=== PATIENT | male | born 1930 | race Caucasian/White ===

== ENCOUNTER 2016-03-02 16:40 | Inpatient (IN) | payer MEDICARE ==
[~2016-03-02] VITALS: Ht 167.6 cm; Wt 57.7 kg
[2016-03-02] MEDS ORDERED: ENOXAPARIN SOD 100 MG/1 ML SYRINGE SC ONE (17:30)
[2016-03-02 17:54] LABS: Basophils # (auto) 0 uL; Basophils % (auto) 0.4 % (0.0-2.0); Eosinophils # (auto) 0.4 uL; Eosinophils % (auto) 4.4 % (0.0-7.0); Hematocrit 42.8 % (41.0-53.0); Hemoglobin 14.1 g/dL (13.5-17.5); Lymphocytes # (auto) 1.3 uL; Lymphocytes % (auto) 15.4 % (10.0-50.0); Mean Corpuscular Hemoglobin 31.1 pg (28.0-32.0); Mean Corpuscular Hgb Conc. 32.9 g/dL (32.0-36.0); Mean Corpuscular Volume 94.4 fL (80.0-100.0); Mean Platelet Volume 7.5 fL (7.4-10.4); Monocytes # (auto) 0.6 uL; Monocytes % (auto) 6.9 % (0.0-12.0); Neutrophils # (auto) 6.2 uL; Neutrophils % (auto) 72.9 % (37.0-80.0); Platelet Count (auto) 242 10^3/uL (140-450); Red Cell Distribution Width 13.7 % (11.6-16.0); White Blood Cell 8.4 10^3/uL (4.4-10.8)
[2016-03-02 18:11] LABS: Albumin 3.4 g/dL (3.4-5.0); BUN/Creatinine Ratio 18.8; Calcium 8.3 mg/dL (8.5-10.1); Potassium 4.3 mmol/L (3.5-5.1)
[2016-03-02 18:13] LABS: Bilirubin, Total 0.3 mg/dL (0.2-1.0); Total Protein 7.4 g/dL (6.4-8.2)
[2016-03-02] MEDS ORDERED: cloNIDine HCL 0.1 MG TAB PO ONE (18:15)
[2016-03-02] MEDS ORDERED: POTASSIUM CHL 10 Meq TABLET PO ONE (19:15)
[2016-03-02] MEDS ORDERED: FUROSEMIDE 20 MG/2 ML VIAL IV ONE (19:15)
[2016-03-02] MEDS ORDERED: TEMAZEPAM 15 MG CAP PO PRN (19:30)
[2016-03-02] MEDS ORDERED: DOCUSATE SOD 100 MG CAP PO PRN (19:30)
[2016-03-02] MEDS ORDERED: MORPHINE SULF INJ 2 MG/ML SYRINGE 1ML IV PRN (19:30)
[2016-03-02] MEDS ORDERED: ACETAMINOPHEN 325 MG TAB PO PRN (19:30)
[2016-03-02] MEDS ORDERED: ENALAPRIL MALEATE 2.5 MG TAB PO ONE (19:30)
[2016-03-02] MEDS ORDERED: ONDANSETRON HCL 4 MG/2 ML VIAL IV PRN (19:30)
[2016-03-02] MEDS ORDERED: cloNIDine HCL 0.1 MG TAB PO PRN (19:30)
[2016-03-02] MEDS ORDERED: HYDROcodone-ACET 5/325MG TAB PO PRN (19:30)
[2016-03-02] MEDS: MULTIPLE VITAMIN TAB PO SCH (19:38)
[2016-03-02 19:41] LABS: INR 1.08 (0.9-1.15); Prothrombin Time 11.1 sec (9.37-12.3)
[2016-03-02 20:00] VITALS: BP 155/69
[2016-03-02 20:20] LABS: Urine Bilirubin Negative (Negative); Urine Blood Negative /uL (Negative); Urine Color Yellow (Yellow); Urine Glucose Normal (Normal); Urine Ketone Negative (Negative); Urine Nitrite Negative (Negative); Urine RBC 2 /hpf (0 - 3); Urine Squamous Epithelial Cell FEW /hpf (<5); Urine Urobilinogen Normal (Negative)
[2016-03-02] MEDS: FAMOTIDINE 20 MG TAB PO SCH (22:00)
[2016-03-02] MEDS: SODIUM CHLOR 0.9% PF (SALINE LOCK) 10ML VIAL IV SCH (22:17)
[2016-03-02] MEDS: CARVEDILOL 3.125 MG TAB PO SCH (22:18)
[2016-03-02 22:38] VITALS: BP 155/69
[2016-03-03 04:06] VITALS: BP 139/76
[2016-03-03] MEDS: ENOXAPARIN SOD 60 MG/0.6 ML SYRINGE SC SCH ×2 (05:40→18:06)
[2016-03-03] MEDS: SODIUM CHLOR 0.9% PF (SALINE LOCK) 10ML VIAL IV SCH ×3 (05:40→21:30)
[2016-03-03 05:53] LABS: Basophils # (auto) 0 uL; Basophils % (auto) 0.6 % (0.0-2.0); Eosinophils # (auto) 0.7 uL; Hematocrit 40.2 % (41.0-53.0); Hemoglobin 13.3 g/dL (13.5-17.5); Lymphocytes # (auto) 1.3 uL; Lymphocytes % (auto) 17.3 % (10.0-50.0); Mean Corpuscular Hemoglobin 31.1 pg (28.0-32.0); Mean Corpuscular Volume 94.3 fL (80.0-100.0); Mean Platelet Volume 8.1 fL (7.4-10.4); Monocytes # (auto) 0.5 uL; Monocytes % (auto) 6.4 % (0.0-12.0); Neutrophils % (auto) 66.7 % (37.0-80.0); Platelet Count (auto) 221 10^3/uL (140-450); Red Cell Distribution Width 13.7 % (11.6-16.0); White Blood Cell 7.4 10^3/uL (4.4-10.8)
[2016-03-03 06:21] LABS: Albumin 3.1 g/dL (3.4-5.0); BUN/Creatinine Ratio 19.1; Calcium 8.5 mg/dL (8.5-10.1); Potassium 4.1 mmol/L (3.5-5.1)
[2016-03-03 06:24] LABS: Bilirubin, Total 0.5 mg/dL (0.2-1.0); Total Protein 6.6 g/dL (6.4-8.2)
[2016-03-03 09:08] VITALS: BP 133/60
[2016-03-03] MEDS: FUROSEMIDE 20 MG/2 ML VIAL IV SCH (10:02)
[2016-03-03] MEDS: POTASSIUM CHL 10 Meq TABLET PO SCH (10:03)
[2016-03-03] MEDS: FAMOTIDINE 20 MG TAB PO SCH (10:03)
[2016-03-03] MEDS: MULTIPLE VITAMIN TAB PO SCH (10:03)
[2016-03-03] MEDS: CARVEDILOL 3.125 MG TAB PO SCH ×2 (10:04→11:05)
[2016-03-03 13:00] VITALS: BP 164/71
[2016-03-03] MEDS ORDERED: LORazepam 2MG/ML-1ML VIAL IV PRN (16:15)
[2016-03-03 17:00] VITALS: BP 159/76
[2016-03-03 22:00] VITALS: BP 128/32
[2016-03-04 05:00] VITALS: BP 176/75
[2016-03-04] MEDS: SODIUM CHLOR 0.9% PF (SALINE LOCK) 10ML VIAL IV SCH ×2 (05:26→14:00)
[2016-03-04] MEDS: ENOXAPARIN SOD 60 MG/0.6 ML SYRINGE SC SCH (05:27)
[2016-03-04 06:14] LABS: Basophils # (auto) 0 uL; Basophils % (auto) 0.4 % (0.0-2.0); DEFINITIVE VIEW TRANSMISSION; Eosinophils % (auto) 11.5 % (0.0-7.0); Hematocrit 45.4 % (41.0-53.0); Hemoglobin 14.7 g/dL (13.5-17.5); Lymphocytes # (auto) 1.9 uL; Lymphocytes % (auto) 23.2 % (10.0-50.0); Mean Corpuscular Hemoglobin 31.1 pg (28.0-32.0); Mean Corpuscular Hgb Conc. 32.5 g/dL (32.0-36.0); Mean Corpuscular Volume 95.8 fL (80.0-100.0); Mean Platelet Volume 8.4 fL (7.4-10.4); Monocytes # (auto) 0.7 uL; Monocytes % (auto) 8.8 % (0.0-12.0); Neutrophils # (auto) 4.7 uL; Neutrophils % (auto) 56.1 % (37.0-80.0); Platelet Count (auto) 233 10^3/uL (140-450); Red Cell Distribution Width 12.9 % (11.6-16.0); White Blood Cell 8.3 10^3/uL (4.4-10.8)
[2016-03-04 07:17] LABS: Albumin 3.6 g/dL (3.4-5.0); BUN/Creatinine Ratio 24.3; Bilirubin, Total 0.4 mg/dL (0.2-1.0); Calcium 8.8 mg/dL (8.5-10.1); Potassium 3.8 mmol/L (3.5-5.1); Total Protein 7.6 g/dL (6.4-8.2)
[2016-03-04] MEDS: FUROSEMIDE 20 MG/2 ML VIAL IV SCH (11:08)
[2016-03-04] MEDS: MULTIPLE VITAMIN TAB PO SCH (11:08)
[2016-03-04] MEDS: POTASSIUM CHL 10 Meq TABLET PO SCH (11:09)
[2016-03-04] MEDS: FAMOTIDINE 20 MG TAB PO SCH (11:09)
[2016-03-04] MEDS: CARVEDILOL 3.125 MG TAB PO SCH (11:09)
[2016-03-04 12:56] VITALS: BP 135/66
[2016-03-05] MEDS ORDERED: ENOXAPARIN SOD 60 MG/0.6 ML SYRINGE SC SCH (10:00)
== END 2016-03-04 14:00 | disposition home or self-care (01) | DRG 299 ==
LOC: ER 16:46 → OVERFLOW 16:47 → WEST WING 19:52
PROVIDERS: ADMIT Internal Medicine; ATTEND Family Medicine
DX: I82.403 Acute embolism and thrombosis of unspecified deep veins of lower extremity, bilateral (principal); I50.43 Acute on chronic combined systolic (congestive) and diastolic (congestive) heart failure; G93.49 Other encephalopathy; E44.0 Moderate protein-calorie malnutrition; I13.0 Hypertensive heart and chronic kidney disease with heart failure and stage 1 through stage 4 chronic kidney disease, or unspecified chronic kidney disease; D63.8 Anemia in other chronic diseases classified elsewhere; F03.90 Unspecified dementia, unspecified severity, without behavioral disturbance, psychotic disturbance, mood disturbance, and anxiety; N18.3 Chronic kidney disease, stage 3 (moderate); Z82.49 Family history of ischemic heart disease and other diseases of the circulatory system; Z82.3 Family history of stroke; Z90.49 Acquired absence of other specified parts of digestive tract; Z68.20 Body mass index [BMI] 20.0-20.9, adult; E83.51 Hypocalcemia
CPT/HCPCS: 36415; 71010; 80053; 81001; 85025; 85049; 85379; 85610; 87081; 87086; 93005; 93306; 94761; 96372; 96374